=== PATIENT | male | born 1965 | race Caucasian/White ===

== ENCOUNTER 2017-08-31 07:56 | Emergency (ER) | payer MEDICAID, OTHER ==
[~2017-08-31] VITALS: Ht 172.7 cm; Wt 89.4 kg
[2017-08-31] MEDS ORDERED: METHOCARBAMOL 750 MG TABLET PO ONE (09:00)
[2017-08-31] MEDS ORDERED: KETOROLAC 30 MG/1 ML IM ONE (09:00)
[2017-08-31] MEDS ORDERED: METHOCARBAMOL 750 MG TABLET ONE (09:06)
[2017-08-31] MEDS ORDERED: KETOROLAC 30 MG/1 ML ONE (09:09)
[2017-08-31 09:17] LABS: ANION GAP 7 mmol/L (5-15); CALCIUM 8.7 mg/dL (8.5-10.1); CHLORIDE 114 mmol/L (98-107); CREATININE 1.19 mg/dL (0.7-1.3)
[2017-08-31 09:20] LABS: MICROSCOPIC NOT IND
[2017-08-31 09:26] LABS: CULTURE INDICATED? NO
[2017-08-31 09:28] LABS: BASOPHILS # (AUTO) 0.04 x10^3/uL (0-0.1); BASOPHILS % (AUTO) 0 % (0-1); EOSINOPHILS # (AUTO) 0.04 x10^3/uL (0-0.4); EOSINOPHILS % (AUTO) 0 % (1-7); LYMPHOCYTES # (AUTO) 1.12 x10^3/uL (1-3.4); LYMPHOCYTES % (AUTO) 9 % (22-44); MD NO; MEAN CORPUSCULAR HEMOGLOBIN 30.4 pg (27.5-34.5); MEAN CORPUSCULAR HGB CONC 33.2 g/dL (33.2-36.2); MEAN CORPUSCULAR VOLUME 91.5 fL (81-97); MEAN PLATELET VOLUME 10.2 fL (7.4-10.4); MONOCYTES # (AUTO) 0.78 x10^3/uL (0.2-0.8); MONOCYTES % (AUTO) 6 % (2-9); NEUTROPHILS # (AUTO) 10.88 x10^3/uL (1.8-6.8); NEUTROPHILS % (AUTO) 85 % (42-75); PLATELET COUNT 266 x10^3/uL (130-400); RED BLOOD COUNT 5.13 x10^6/uL (4.38-5.82); RED CELL DISTRIBUTION WIDTH 14.4 % (9.4-14.8)
[2017-08-31 11:34] VITALS: BP 128/83
== END 2017-08-31 11:47 | disposition home or self-care (01) ==
LOC: ED 11:11
DX: M54.5 Low back pain (principal)
CPT/HCPCS: 36415; 80048; 81003; 82040; 85025; 96372; 99284; J1885